=== PATIENT | female | born 1975 | race Caucasian/White ===

== ENCOUNTER 2021-11-20 12:45 | Emergency (ER) | payer BC, SELFPAY ==
--- NOTE | 2021-11-20 12:45 | RT.EKG_ITS ---
APPROVED REPORT Exam: Resting ECG Reason for Exam: CHEST PAIN Patient Location: E HR:84 bpm ECG Measurements Heart Rate 84 AXIS NH 179 P 51 QRSd 77 QRS 37 QT 341 T 32 QTc 403 Conclusion Sinus rhythm...normal P axis, V-rate 60- 99
[2021-11-20 12:49] VITALS: BP 148/104; PULSE 94; RESP 18; TEMP 36.7; O2SAT 98
--- NOTE | 2021-11-20 12:57 | ED.GENADUL_ITS ---
Discharge Plan Discharge Details Chief Complaint: Chest Pain Primary Care Provider: Abhijit Tom ED Provider: Jl Johnson Medical Decision Making Patient's EKG on presentation reveals a normal sinus rhythm normal intervals normal segments. No signs of ischemia on EKG. Patient meets negative PERC criteria for PE, score 0. No further work-up regarding PE required at this time. Patient's troponin was negative. Chest x-ray also within normal limits. Vaccination patient's symptoms at this point. ACS and pulmonary issues were ruled out. Patient will be discharged with instruction to take a baby aspirin a day and follow-up with PCP HPI General Date/Time Provider Initiated Documentation: 11/20/21 12:57 . HPI Narrative: 46-year-old lady presented to emergency room for evaluation of chest pain. States she was riding a long board yesterday afternoon the warm weather when she developed some anterior chest tightness. At times this radiates to her back. She continues to mow the lawn than 1+. She has been having persistent pain for approximately 24 hours now. Will relieving factors. No chest pain factors. Not associated with any nausea vomiting. She states she was mildly diaphoretic yesterday while mowing the lawn but it was hot. Previous to yesterday's chest pain presentation she states she felt nauseous for 3 days. No vomiting. No shortness of breath, no cough. No palpitations. No swelling of lower extremities. General Stated Complaint: Chest Pain ERICKA: 3 Review of Systems Narrative: Constitutional negative for fever chills. Positive for malaise fatigue HEENT negative Cardiovascular see HPI no palpitation Respiratory no cough no short of breath GI no abdominal pain no nausea no vomiting negative MSK negative Skin negative Neuro no headache no paresthesias no focal weakness Psych positive anxiety Endo no weight gain no weight loss Pathological not on any blood thinners. PFSH Social History Smoking/Tobacco Use Status: Never Smoking risk assessment performed?: Yes Alcohol Intake: current Alcohol Intake frequency: a few times a month Alcohol type: wine Drug use: Never Substance use type: does not use Do you feel safe at home: Yes Do you feel safe in your relationship?: Yes Exam Narrative Exam Narrative: Awake alert oriented x3 calm no acute distress cooperative pleasant, obese PERRLA EOMI MMM anicteric Supple neck Chest is clear to auscultation bilaterally. No crepitus. Regular rhythm and rate no murmurs Abdomen soft nondistended no tenderness Skin no rashes good color good cap refill Neuro grossly intact strength 5/5 bilaterally Extremity no pedal edema Psych good mood and affect Course Vital Signs Vital signs: Vital Signs Temperature 36.7 C 11/20/21 12:49 Pulse 94 H 11/20/21 12:49 Respiratory Rate 18 11/20/21 12:49 Blood Pressure 148/104 H 11/20/21 12:49 Pulse Oximetry 98 11/20/21 12:49 Temperature 36.7 C 11/20/21 12:49 Temperature Source Tympanic 11/20/21 12:49 Pulse 94 H 11/20/21 12:49 Respiratory Rate 18 11/20/21 12:49 Respiratory Effort 11/20/21 12:52 Blood Pressure 148/104 H 11/20/21 12:49 Blood Pressure Position Supine 11/20/21 12:49 Pulse Oximetry 98 11/20/21 12:49 Oxygen Delivery Method Room Air 11/20/21 12:49 Oxygen Flow Rate 0 11/20/21 12:49 Pain Level 5 11/20/21 12:49
--- NOTE | 2021-11-20 13:00 | DI.RAD_ITS ---
Exam(s) XR CHEST 2V PA LATERAL EXAM: XR CHEST 2V PA LATERAL CLINICAL HISTORY: Chest pain TECHNIQUE: 2D digital imaging was performed of the chest. Two images were obtained. PA and lateral views were obtained. COMPARISON: No exams were available for comparison FINDINGS: MEDIASTINUM: Normal. HEART: Normal. PULMONARY VASCULATURE: Normal. LUNGS: Clear. PLEURAL SPACE: No pleural effusion or pneumothorax. BONE:Within normal limits for the patient's age. OTHER FINDINGS:Normal. IMPRESSION: No acute pulmonary findings. DATA REPOSITORY: RADIATION DOSE DELIVERED:
[2021-11-20] MEDS: Aspirin 325 MG TAB PO (13:09)
[2021-11-20 13:20] LABS: Abs Immature Grans 0.03 10^3/uL (0.0-0.06); Absolute Basophil Count 0.05 10^3/uL (0.0-0.2); Absolute Eosinophil Count 0.18 10^3/uL (0.0-0.7); Absolute Lymphocyte Count 1.74 10^3/uL (1.2-3.4); Absolute Monocyte Count 0.48 10^3/uL (0.1-0.8); Absolute Neutrophil Count 4.66 10^3/uL (1.2-6.7); Basophils % 0.7; Eosinophils % 2.5; HCT 40.8 % (36.0-46.0); HGB 14.3 g/dL (11.2-15.7); Immature Grans % 0.4; Lymphocytes % 24.4; MCH 33.5 pg (27.0-33.0); MCV 96 fL (80-95); Monocytes % 6.7; Neutrophils % 65.3; RBC 4.27 10^6/uL (3.93-5.22); RDW-SD 42.2 fL; WBC 7.14 10^3/uL (4.4-10.8)
[2021-11-20 13:36] LABS: ALT 51 U/L (14-59); AST 37 U/L (15-37); Albumin 3.6 g/dL (3.4-5.0); Alkaline Phosphatase 113 U/L (46-116); Anion Gap 6.6 mmol/L (3-11); BUN 7 mg/dL (7-18); Bilirubin, Total 0.4 mg/dL (0.2-1.0); CO2 28.4 mmol/L (21.0-32.0); CREATININE 0.8 mg/dL (0.55-1.02); Calcium 8.9 mg/dL (8.5-10.1); Chloride 103 mmol/L (98-107); Glucose 137 mg/dL (74-106); Sodium 138 mmol/L (136-145); Total Protein 7.4 g/dL (6.4-8.2); Troponin I < 50 ng/L (<or=60)
--- OUTSIDE RECORDS SUMMARY | 2021-11-20 14:13 | XMS_ITS | CCD ---
:1975 Author Care Team Providers Name Role Phone SLIM CALVO Attending Physician Unavailable SLIM CALVO Rounding (Secondary) Physician Unavailab le Vital Signs Unknown or Not Available. Allergies Allergy Code Allergy Type Reaction Status MORPHINE 7052 Drug allergy muscle tightness Active Procedures Unknown or Not Available. History of Immunizations Unknown or Not Available. Problems Unknown or Not Available. Results Unknown or Not Available. Active Medications Medication Code Dose Units Frequency Route Modification Start Date/Time Citalopram 391581 40 MILLIGRAMS DAILY ORAL 01/01/2019 Hydrobromide 19:49 40MG Oral Tablet Prescription Detail TAKE 40 MILLIGRAMS ORAL AURY Y Glimepiride 1MG Oral Tablet [id number] 1 MILLIGRAMS DAILY ORAL 01/01/2019 19:49 Prescription Detail TAKE 1 MILLIGRAMS ORAL DAILY KlonoPIN 0.5MG 312006 0.5 MILLIGRAMS NEEDED THREE ORAL 01/01/2019 19:49 Oral Tablet TIMES A DAY Prescription Detail TAKE 0.5 MILLIGRAMS ORAL NEEDED THREE TIMES A DAY LORazepam 0.5MG [id number] 0.5 MILLIGRAMS NEEDED, ORAL 19:49 Oral Tablet EVERY 12 HOURS Prescription Detail TAKE 0.5 MILLIGRAMS ORAL NEEDED, EVERY 12 HOURS MIRENA IUD 0 1 NEEDED INTRAUTERINE 2018 19:49 Prescription Detail 1 INTRAUTERINE NEEDED Naproxen 500MG Oral [id number] 500 MILLIGRAMS TWICE A DAY ORAL 01/01/2019 19:49 Tablet Prescription Detail TAKE 500 MILLIGRAMS ORAL TWI CE A DAY ONDANSETRON HCI 4MG 0 4 MILLIGRAMS NEEDED, EVERY ORAL 01/01/2019 19:49 ORAL TABLET 12 HOURS Prescription Detail TAKE 4 MILLIGRAMS ORAL NE EDED, EVERY 12 HOURS Propranolol HCl 40MG Oral [id number] 40 MILLIGRAMS DAILY ORAL 01/01/2019 19:49 Tablet Prescription Detail TAKE 40 MILLIGRAMS ORAL AURY Y Medications Administered During Visit Unknown or Not Available. Encounters Encounter Diagnosis Diagnosis Code Start Date Injury of right shoulder [id number] 08/04/2021 Social History Smoking Status Code Start Date End Date Never smoker [id number] Patient Decision Aids Unknown or Not Available. Discharge Instructions You were admitted to [facility] on 08/04/2021 13:50 with a principal diagnosis of Injury of right shoulder You were discharged from [facility] on 08/04/2021 00:00 Should you have any questions prior to d ischarge, please contact a member of your healthcare team. If you have left the spital and have any questions, please contact your primary care physician. Chief Complaint and Reason For Visit Unknown or Not Available. Function Status Unknown or Not Available. Plan of Care Unknown or Not Available. Referral/Transition of Care Unknown or Not Available.
--- OUTSIDE RECORDS SUMMARY | 2021-11-20 14:13 | XMS_ITS | CCD ---
:1975 Author Care Team Providers Name Role Phone DELFINA GUAJARDO Attending Physician Unavailable DELFINA GUAJARDO Rounding (Secondary) Physician Unavaila ble Vital Signs Unknown or Not Available. Allergies Allergy Code Allergy Type Reaction Status MORPHINE 7052 Drug allergy muscle tightness Active Procedures Unknown or Not Available. History of Immunizations Unknown or Not Available. Problems Unknown or Not Available. Results Unknown or Not Available. Active Medications Medication Code Dose Units Frequency Route Modification Start Date/Time Citalopram [id number] 40 MILLIGRAMS DAILY ORAL 01/01/2019 Hydrobromide 19:49 40MG Oral Tablet Prescription Detail TAKE 40 MILLIGRAMS ORAL AURY Y Glimepiride 1MG Oral Tablet 117997 1 MILLIGRAMS DAILY ORAL 01/01/2019 19:49 Prescription Detail TAKE 1 MILLIGRAMS ORAL DAILY KlonoPIN 0.5MG 122521 0.5 MILLIGRAMS NEEDED THREE ORAL 01/01/2019 19:49 Oral Tablet TIMES A DAY Prescription Detail TAKE 0.5 MILLIGRAMS ORAL NEEDED THREE TIMES A DAY LORazepam 0.5MG 860729 0.5 MILLIGRAMS NEEDED, ORAL 19:49 Oral Tablet EVERY 12 HOURS Prescription Detail TAKE 0.5 MILLIGRAMS ORAL NEEDED, EVERY 12 HOURS MIRENA IUD 0 1 NEEDED INTRAUTERINE 2018 19:49 Prescription Detail 1 INTRAUTERINE NEEDED Naproxen 500MG Oral [id number] 500 MILLIGRAMS TWICE A DAY ORAL 01/01/2019 19:49 Tablet Prescription Detail TAKE 500 MILLIGRAMS ORAL TWI CE A DAY ONDANSETRON HCI 4MG 0 4 MILLIGRAMS NEEDED, EVERY ORAL 01/01/2019 19:49 ORAL TABLET 12 HOURS Prescription Detail TAKE 4 MILLIGRAMS ORAL NE EDED, EVERY 12 HOURS Propranolol HCl 40MG Oral [id number] 40 MILLIGRAMS DAILY ORAL 01/01/2019 19:49 Tablet Prescription Detail TAKE 40 MILLIGRAMS ORAL AURY Y Medications Administered During Visit Unknown or Not Available. Encounters Encounter Diagnosis Diagnosis Code Start Date Other specified disorders of tendon, right shoulder [id number] 09/18/2021 Social History Smoking Status Code Start Date End Date Never smoker [id number] Patient Decision Aids Unknown or Not Available. Discharge Instructions You were admitted to [facility] on 09/18/2021 08:02 with a principal diagnosis of Other specified disorders of tendon, right shoulder You were discharged from [facility] on 09/18/2021 00:00 Should you have any questions prior [...]
--- OUTSIDE RECORDS SUMMARY | 2021-11-20 14:13 | XMS_ITS | CCD ---
[...] Units Frequency Route Modification Start Date/Time Citalopram [id number] 40 MILLIGRAMS DAILY ORAL 01/01/2019 Hydrobromide 19:49 40MG Oral Tablet Prescription Detail TAKE 40 MILLIGRAMS ORAL AURY Y Glimepiride 1MG Oral Tablet [id number] 1 MILLIGRAMS DAILY ORAL 01/01/2019 19:49 Prescription Detail TAKE 1 MILLIGRAMS ORAL DAILY KlonoPIN 0.5MG 596875 0.5 MILLIGRAMS NEEDED THREE ORAL 01/01/2019 19:49 Oral Tablet TIMES A DAY Prescription Detail TAKE 0.5 MILLIGRAMS ORAL NEEDED THREE TIMES A DAY LORazepam 0.5MG 151018 0.5 MILLIGRAMS NEEDED, ORAL 19:49 Oral Tablet EVERY 12 HOURS Prescription Detail TAKE 0.5 MILLIGRAMS ORAL NEEDED, EVERY 12 HOURS MIRENA IUD 0 1 NEEDED INTRAUTERINE 2018 19:49 Prescription Detail 1 INTRAUTERINE NEEDED Naproxen 500MG Oral [id number] 500 MILLIGRAMS TWICE A DAY ORAL 01/01/2019 19:49 Tablet Prescription Detail TAKE 500 MILLIGRAMS ORAL TWI CE A DAY ONDANSETRON HCI 4MG 0 4 MILLIGRAMS NEEDED, EVERY ORAL 01/01/2019 19:49 ORAL TABLET 12 HOURS Prescription Detail TAKE 4 MILLIGRAMS ORAL NE EDED, EVERY 12 HOURS Propranolol HCl 40MG Oral [id number] 40 MILLIGRAMS DAILY ORAL 01/01/2019 19:49 Tablet Prescription Detail TAKE 40 MILLIGRAMS ORAL AURY Y Medications Administered During Visit Unknown or Not Available. Encounters Unknown or Not Available. Social History Smoking Status Code Start Date End Date Never smoker [id number] Patient Decision Aids Unknown or Not Available. Discharge Instructions You were admitted to [facility] on 10/16/2021 08:56 You were discharged from [facility] on 10/16/2021 00:00 Should you have any questions prior [...]
--- OUTSIDE RECORDS SUMMARY | 2021-11-20 14:14 | XMS_ITS ---
:1975 Author Care Team Providers Name Role Phone KAIA MCNULTY NP Primary Care Provider [phone] [facility] Staff Mechanical Engineer [phone] Allergies Code Code System Name Reaction Severity Status Onset 7052 RxNorm Morphine Myalgias (Muscle Pain) ? Active ? Notes: 07/31/21 verbal review Medications Name Status Start Date Stop Date ? ? acetaminophen 300 mg-codeine 30 mg tablet Completed 201307/11/2013 1-2 Tablet: every six hours as needed for pain Advair Diskus 250 mcg-50 mcg/dose powder for inhalation Active ? Not available Inhale 1 puff twice a day by inhalation route. Afluria Quad 3234-2874 60 mcg (15 mcg x 4)/0.5 Completed ? 05/01/2018 mL IM suspension albuterol sulfate HFA 90 mcg/actuation aerosol inhaler Active ? Not available Inhale 2 puffs every 4 hours by inhalation route. amoxicillin 500 mg capsule Completed ? 02/27 aspirin 81 mg chewable tablet Completed ? Chew 1 tablet every day by oral route. atorvastatin 20 mg tablet Completed ? 2018 BD Ultra-Fine Short Pen Needle 31 gauge x 5/16 Active ? Not available Bentyl 20 mg tablet Completed 12/13/2012 07/19/2014 1 Tablet: four times daily benzonatate 100 mg capsule Completed 06/01/201606/04 1 (one) Capsule: three times daily as needed bisacodyl 5 mg tablet Completed ? 05/10/2018 Take 1 tablet every day by oral route. ciprofloxacin 500 mg tablet Active ? Not available citalopram 40 mg tablet Active ? Not avai lable Claritin Liqui-Gel 10 mg capsule Completed 01/13/2009 09/16/2011 1 (one) Capsule: as needed clindamycin 1 % topical gel Completed 07/14/201507/22 1 (one) Gel: abid clonazepam 0.5 mg tablet Active ? Not luan ilable TAKE ONE TABLET BY MOUTH EVERY MORNING & TAKE TWO TABLETS BY MOUTH EVERY EVENING codeine 10 mg-guaifenesin 100 mg/5 mL oral liquid Completed 07/23/2016 09/28/2016 5-10 Milliliter: qpm Contour Test Strips Active ? Not availabl e Test 3 times daily cyclobenzaprine 10 mg tablet Active ? Not available Take 1 tablet 3 times a day by oral route as needed. Fluzone Quad 2750-2050 (PF) 60 mcg (15 mcg x Completed ? 06/04/2019 4)/0.5 mL IM syringe gabapentin 100 mg capsule Completed ? 2021 one capsule 3 times a day glimepiride 1 mg tablet Completed ? 02/28/20 18 glimepiride 2 mg tablet Completed ? 11/22/19 18 glimepiride 4 mg tablet Completed ? 12/28/19 18 1 daily Humalog KwikPen (U-100) Insulin 100 unit/mL subcutaneous Active ? Not available inject units subcutaneously based on sl iding scale. Eat 15 minutes within giving a dose of insulin 150 or less - no -772 - 2 units 201-250 - 4 units 251-300 - 8 units 300 or more - call physician hydrocodone 5 mg-acetaminophen 325 mg tablet Completed 02/01/2011 1 Tablet: every 4-6 hours hydrocortisone 2.5 % topical cream Completed 05/22/2012 06/01/2016 1 Cream: tid - three times a day hydromorphone 2 mg tablet Completed ? 2017 hydroxyzine HCl 50 mg tablet Active ? Not available Take 1 tablet every day by oral route at bedtime. ibuprofen 600 mg tablet Completed 03/03/2011 03/03/20 11 1 (one) Tablet: three times daily Imitrex 100 mg tablet Completed 07/19/2014 01/20/2016 2 (two) Tablet: one time at onset of headache as needed cephalexin 500 mg capsule Active ? Not av ailable Lamisil 250 mg tablet Completed 02/01/2011 09/16/2011 1 Tablet: daily lamotrigine 100 mg tablet Completed ? 2019 lamotrigine 150 mg tablet Active ? Not av ailable Take 1 tablet every day by oral route. lamotrigine 200 mg tablet Completed ? 2019 lamotrigine 25 mg tablet Completed ? 018 lamotrigine ER 100 mg tablet,extended release 24 hr Completed 05/20/2017 05/20/2017 1 (one) Tablet: once daily Lantus Solostar U-100 Insulin 100 unit/mL (3 mL) subcutaneous pe n Active ? Not available USE 15 UNITS EVERY MORNING lorazepam 0.5 mg tablet Active ? Not avai lable lorazepam 1 mg tablet Active ? Not availa ble meclizine 25 mg tablet Completed 08/06/2015 6 1 (one) Tablet Tablet: tid - three times a day as needed meloxicam 15 mg tablet Completed ? 1 Take 1 tablet every day by oral route. Metamucil (with sugar) 3.4 gram/12 gram oral powder Completed 12/13/2012 06/01/2016 1 Powder: two times daily metformin ER 500 mg tablet,extended release 24 hr Completed 05/14/2015 01/20/2016 1 (one) Tablet ER 24HR Tablet ER 24HR: ud metronidazole 500 mg tablet Completed ? 08/18 Mirena 20 mcg/24 hours (7 yrs) 52 mg intrauterine device Active ? Not available Take 1 device by intrauterine route. naproxen 500 mg tablet Completed ? 2 Take 1 tablet twice a day by oral route as needed. naproxen 500 mg tablet,delayed release Completed ? 12/27/2017 Narcan 4 mg/actuation nasal spray Active ? Not available Take 1 spray as needed by nasal route. Nasonex 50 mcg/actuation [place] Completed 11/09/2004 0 06/29/2005 2 (two) [place](s): QD Novofine 32 32 gauge x 1/4 needle Active ? Not available nystatin 100,000 unit/mL oral suspension Completed 010 01/19/2010 1 (one) teaspoon(s): qid - four times a day omeprazole 20 mg capsule,delayed release Active ? Not available [address]: daily ondansetron 4 mg disintegrating tablet Active ? Not available Take 1 tablet(s) every 8 hours by oral route as needed. ondansetron HCl 4 mg tablet Completed ? 12/18 ondansetron HCl 8 mg tablet Completed 12/13/201201/2013 1 Tablet: oral twice per day OneTouch Ultra Blue Test Strip Active ? N ot available pantoprazole 40 mg tablet,delayed release Active ? Not available Take 1 tablet every day by oral route as needed. penicillin V potassium 500 mg tablet Completed ? 10/03/2020 Take 1 tablet twice a day by oral route for 10 days. Percocet 10 mg-325 mg tablet Completed 08/09/201309/2013 1 (one) Tablet: by mouth every 4-6 hours as needed for pain phenazopyridine 200 mg tablet Completed ? Phenergan 25 mg/mL injection solution Completed 10/02/2012 10/02/2012 1 Solution: oral every 6 hours as needed polyethylene glycol 3350 17 gram/dose oral powder Completed ? 02/27/2018 Take 1 g twice a day by oral route. prazosin 1 mg capsule Active ? Not availa ble take 1 capsule in the morning and 2 capsules in the evening prednisone 10 mg tablet Completed 01/19/2010 01/20/20 10 4 Tablet: daily propranolol 20 mg tablet Active ? Not luan ilable Take 1 tablet every day by oral route. quetiapine 200 mg tablet Completed ? 019 Take 1 tablet every day by oral route as needed. Senna with Docusate Sodium 8.6 mg-50 mg tablet Completed ? 02/27/2018 Take 2 tablets twice a day by oral route. sulfamethoxazole 800 mg-trimethoprim 160 mg Completed ? 12/11/2018 tablet tamsulosin 0.4 mg capsule Completed ? 2021 Take 1 capsule every day by oral route for 14 days. Topamax 25 mg tablet Completed 10/02/2012 10/02/2012 1 Tablet: See comments tramadol 50 mg tablet Active ? Not availa ble 1-2 tabs every 6 hours as needed triamcinolone acetonide 0.1 % topical cream Completed 07/200909/16/2011 1 (one) Cream: Twice daily Trulicity 0.75 mg/0.5 mL subcutaneous pen Completed ? 08/24/2019 injector Valtrex 1 gram tablet Completed 08/20/2010 08/30/2010 1 Tablet: tid - three times a day venlafaxine ER 150 mg capsule,extended release 24 hr Active ? Not available take 1 capsule once daily venlafaxine ER 75 mg capsule,extended release Completed ? 11/21/2017 24 hr venlafaxine ER 75 mg tablet,extended release 24 hr Completed ? 12/19/2017 1 capsule once daily Victoza 2-Aleks 0.6 mg/0.1 mL (18 mg/3 mL) Active ? Not available subcutaneous pen injector Xopenex HFA 45 mcg/actuation aerosol inhaler Completed 11/11/2010 2 (two) Aerosol: Every 6 hours as needed azithromycin 250 mg tablet Active ? Not a vailable Zoloft 25 mg tablet Completed 03/10/2007 03/10/2007 1 (one) Tablet: Daily Zoloft 50 mg tablet Completed 01/13/2009 01/13/2009 1 (one and a half) Tablet: daily Notes: 07/31/21 verbal review Problems Name Status Onset Date Source ? Solitary Nodule of Lung Active 10/02/2018 ? Thyroid Nodule Active 04/30/2020 ? Hypertensive Disorder Active 10/30/2021 ? Type 2 Diabetes Mellitus without Complication Active ? ? Hyperlipidemia Active ? ? Severe Obesity Active ? ? Claustrophobia Unknown ? History Depressive Disorder Active ? ? Migraine with Aura Active ? ? Pharyngitis Unknown ? History Disorder of Upper Respiratory System Unknown ? History Gastroesophageal Reflux Disease Active ? ? Irritable Bowel Syndrome Active ? ? Acute Cholecystitis Unknown ? History Chronic Cholecystitis Unknown ? History Acute Pancreatitis Unknown ? History Blood in Urine Unknown ? History Irregular Periods Unknown ? History Dizziness and Giddiness Unknown ? History Cough Unknown ? History Dysuria Unknown ? History Epigastric Pain Unknown ? History Insertion of Intrauterine Contraceptive Device Active ? ? Intrauterine Device Check Active ? ? Venereal Disease Screening Unknown ? Histo ry Finding of Menstrual Bleeding Unknown ? Hi story SNOMED CT Concept Unknown ? History Pain in Right Knee Active ? ? Procedure by Method Unknown ? History Finding of Esophagus Unknown ? History Procedures Date Name Performed by ? 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 Caesarean Section Information not avai lable Notes: with bilateral partial salpinge ctomy ? Hip Surgery Information not avai lable Notes: left hip labrum 12/27/2017 Electrocardiogram [facility] [address] [place] [address] (Work Place) 08/24/2018 CT, Chest, W/o Contrast [facility] (Internal) [address] [place] [address] (Work Place) 06/19/2019 MAMMO, Screening, Tomosynthesis, [facility] (Internal) Bilateral [address] [place] [address] (Work Place) 06/27/2019 XR, Clavicle [facility] (Internal) [address] [place] [address] (Work Place) 10/01/2019 US, Head + Neck, Soft Tissue [facility] Radiology (Internal) [address] [place] [address] (Work Place) 04/11/2020 US, Head + Neck, Soft Tissue [facility]iology (Internal) [address] [place] [address] (Work Place) 10/03/2020 MAMMO, Screening, Tomosynthesis, [facility] (Internal) Bilateral [address] [place] [address] (Work Place) 07/31/2021 MRI, Shoulder, W/o Contrast [facility] Radiology (Internal) [address] [place] [address] (Work Place) 10/13/2021 MAMMO, Screening, Tomosynthesis, [facility] (Internal) Bilateral [address] [place] [address] (Work Place) 10/27/2021 MAMMO, Screening, Tomosynthesis, [facility] (Internal) Bilateral [address] [place] [address] (Work Place) Results Lab Results Date Name Specimen Result Interpretation Description Value Range Status Address ? 07/31/2021 HbA1C BLD High Ha1C 7.1 % 4.0-6.0 % Final [facility] th (Hemoglobin Count ry a1C), Blood Hospi [facility] Lab (Internal) : [address] 07/31/2021 Lipid Panel, S High Chol 230 0-200 Final [facility] Serum mg/dL mg/dL [facility] ([facility] : [address] ? ? S High Trig 253 0-150 Final [facility] mg/dL mg/dL [facility] (Internal) : [address] t ? ? S Low Hdl 39 40-60 Final [facility] mg/dL mg/dL [facility] (Internal) : [address] ? ? S High Ldl 140 0-130 Final [facility] mg/dL mg/dL [facility] (Internal) : [address] 07/31/2021 BMP, Serum or S High g/r 125 74-106 Final [facility] Plasma mg/dL mg/dL [facility] (Internal) : [address] ? ? S ? Bun 7 mg/dL 7-18 Final [facility] mg/dL [facility] (Internal) : [address] t ? ? S ? Crea 0.7 0.6-1.0 Final [facility] mg/dL mg/dL [facility] (Internal) : [address] ? ? S ? Ca 9.0 8.5-10.1 Final [facility] mg/dL mg/dL [facility] (Internal) : [address] ? ? S Low Na 135 136-145 Final [facility] mmol/L mmol/L [facility] (Internal) : [address] t ? ? S ? K 4.2 3.5-5.1 Final [facility] mmol/L mmol/L [facility] (Internal) : [address] ? ? S ? Cl 100 98-107 Final [facility] mmol/l mmol/l [facility] (Internal) : [address] ? ? S ? Tco2 29.3 21.0-32.0 Final [facility] mmol/L mmol/L [facility] (Internal) : [address] 07/31/2021 Microalbumin, UR ? Malb <5 mg/L 5-20 mg/L Fi nal [facility] Urine [facility] (Internal) : [address] ? ? UR ? U-crea, 57 30-125 Final [facility] Spot mg/dL mg/dL [facility] (Internal) : [address] ? ? UR ? Microal 6.8 0.0-30.0 Final [facility] b/crea ug/mg ug/mg [facility] (Internal) : [address] 06/24/2021 CBC W/ Auto Diff BLD ? Wbc 6.9 5.0-10.0 F inal [place] 10*3/uL 10*3/uL [facility] (Internal) : [address] ? ? BLD ? Rbc 4.48 4.10-5.30 Final [facility] 10*6/uL 10*6/uL [facility] (Internal) : [address] ? ? BLD ? Hgb 14.7 12.0-16.0 Final [facility] g/dL g/dL [facility] (Internal) : [address] ? ? BLD ? Hct 41.7 % 37.0-47.0 Final [facility] (Internal) : [address] ? ? BLD ? Mcv 93.1 fL 80.0-96.0 Final [facility] (Internal) : [address] ? ? BLD High Mch 32.8 pg 26.0-32.0 Final [facility] pg [facility] (Internal) : [address] ? ? BLD High Mchc 35.3 31.0-35.0 Final [facility] g/dL g/dL [facility] (Internal) : [address] ? ? BLD ? Rdw 11.9 % 11.5-14.5 Final [facility] (Internal) : [address] ? ? BLD ? Plt 220 130-450 Final [place] 10*3/uL 10*3/uL [facility] (Internal) : [address] ? ? BLD ? Anc 3.98 ? Final [place] 10*3/uL [facility] (Internal) : [address] ? ? BLD ? Nlr 1.94 0.00-3.20 Final [facility] (Internal) : [address] ? ? BLD ? Neutro 57.6 % 40.0-75.0 Final [facility] (Internal) : [address] ? ? BLD ? Lymph 29.7 % 20.0-50.0 Final [facility] (Internal) : [address] ? ? BLD ? [place] 9.0 % 2.0-10.0 Final [facility] (Internal) : [address] ? ? BLD ? Eos 2.5 % 1.0-6.0 % Final [facility] (Internal) : [address] ? ? BLD ? Baso 0.9 % 0.0-1.0 % Final [facility] (Internal) : [address] ? ? BLD ? Ig 0.3 % 0.0-0.9 % Final [facility] (Internal) : [address] t 06/24/2021 CMP, Serum or S High g/r 163 74-106 Final [facility] Plasma mg/dL mg/dL [facility] (Internal) : [address] ? ? S ? Bun 14 7-18 Final [facility] mg/dL mg/dL [facility] (Internal) : [address] ? ? S ? Crea 0.9 0.6-1.0 Final [facility] mg/dL mg/dL [facility] (Internal) : [address] ? ? S ? Ca 10.1 8.5-10.1 Final [place] mg/dL mg/dL [facility] (Internal) : [address] ? ? S ? Na 138 136-145 Final [place] mmol/L mmol/L [facility] (Internal) : [address] ? ? S ? K 4.0 3.5-5.1 Final [facility] mmol/L mmol/L [facility] ([facility] : [address] ? ? S ? Cl 100 98-107 Final [facility] mmol/l mmol/l [facility] (Internal) : [address] ? ? S ? Tco2 29.1 21.0-32.0 Final [facility] mmol/L mmol/L [facility] (Internal) : [address] ? ? S ? Tp 7.3 6.4-8.2 Final [facility] g/dL g/dL [facility] (Internal) : [address] ? ? S ? Alb 3.8 3.4-5.0 Final [place] g/dL g/dL [facility] (Internal) : [address] ? ? S ? Tbil 0.40 0.20-1.00 Final [facility] mg/dL mg/dL [facility] (Internal) : [address] ? ? S ? Alp 118 U/L 50-136 Final [place] U/L [facility] (Internal) : [address] ? ? S ? Alt 34 U/L 14-59 U/L Final [facility] (Sgpt) [facility] (Internal) : [address] ? ? S ? Ast 18 U/L 15-37 U/L Final [facility] (Sgot) [facility] (Internal) : [address] 06/24/2021 BNP (B-type S ? Nt-bnp 10 0-125 Final [facility] Natriuretic pg/mL pg/mL Count ry Peptide), Hospita l Lab Prohormone (Inter nal): N-terminal, [address], [place] Immunoassay, Blood 06/24/2021 Lipase, Serum or S ? Lip 74 U/L 73-393 Fin al [facility] Plasma U/L [facility] (Internal) : [address] 06/24/2021 Troponin I, S ? Trop 16.45 0.00-60.4 Final [facility] Serum or Plasma pg/mL 0 pg/mL [facility] (Internal) : [address] 06/24/2021 EKG Done by ED ? No ? ? ? North observat [facility] recorded (Interna l): . [address] 06/01/2021 Drug Screen, UR ? Thc negativ neg (50 Final [facility] Urine e NG/mL NG/mL) [facility] NG/mL Hospital L ab (Internal) : [address] ? ? UR ? Pcp negativ neg (25 Final [facility] e NG/mL) [facility] : [address] ? ? UR ? Peyton negativ neg (150 Final [facility] e NG/mL) [facility] ([facility] : [address] ? ? UR ? Met negativ neg (500 Final [facility] e NG/mL) [facility] (Internal[facility] : [address] ? ? UR ? Opi negativ neg (100 Final [facility] e NG/mL) [facility] ([facility] : [address] ? ? UR ? Amp negativ neg (500 Final [facility] e NG/mL) [facility] (Internal) : [address] ? ? UR ABNORMAL Bzo positiv neg (150 Final [facility] e NG/mL) [facility] ([facility] : [address] ? ? UR ? Tca negativ neg (300 Final [facility] e NG/mL) [facility] ([facility] : [address] ? ? UR ? Mtd negativ neg (200 Final [place] e NG/mL) [facility] (Internal) : [address] ? ? UR ? Bar negativ neg (200 Final [facility] e NG/mL) [facility] ([facility] : [address] ? ? UR ? Oxy negativ neg (100 Final [place] e NG/mL) [facility] ([facility] : [address] ? ? UR ? Ppx negativ neg (300 Final [facility] e NG/mL) [facility] (Internal[facility] : [address] ? ? UR ? Bup negativ neg (10 Final [place] e NG/mL) [facility] (Internal) : [address], [place] 06/01/2021 Benzodiazepines, UR ? Alprazo negativ cutoff: Final North Quantitative garcia by e NG/mL 10 NG/mL C ountry Confirmation, lc-MS/MS H ospital Lab Urine (Internal) : [address] ? ? UR ? Alpha-h negativ cutoff: Final [facility] ydroxyal e NG/mL 10 NG/mL Count ry prazolam Hospital Lab by (Internal) : lc-MS/MS [address] ? ? UR ? Chlordi negativ cutoff: Final [facility] azepoxid e NG/mL 10 NG/mL Count ry e by Hospital L ab lc-MS/MS (Interna l): [address] ? ? UR ? Clonaze negativ cutoff: Final North bala by e NG/mL 10 NG/mL [facility] lc-MS/MS Hospital Lab (Internal) : [address] ? ? UR ? 7-Amino 42 cutoff: Final North clonazep NG/mL 10 NG/mL Countr y am by Hospital L ab lc-MS/MS (Interna l): [address] ? ? UR ? Diazepa negativ cutoff: Final North m by e NG/mL 10 NG/mL [facility] lc-MS/MS Hospital Lab (Internal) : [address] ? ? UR ? Nordiaz negativ cutoff: Final North epam by e NG/mL 10 NG/mL Countr y lc-MS/MS Hospital Lab (Internal) : [address] ? ? UR ? Midazol negativ cutoff: Final North am by e NG/mL 10 NG/mL [facility] lc-MS/MS Hospital Lab (Internal) : [address] ? ? UR ? Alpha-h negativ cutoff: Final North ydroxy e NG/mL 10 NG/mL [facility] Midaz[facility] Lab m by (Internal) : lc-MS/MS [address] t ? ? UR ? Oxazepa negativ cutoff: Final North m by e NG/mL 10 NG/mL [facility] lc-MS/MS Hospital Lab (Internal) : [address], [place] ? ? UR ? Temazep negativ cutoff: Final North am by e NG/mL 10 NG/mL [facility] lc-MS/MS Hospital Lab (Internal) : [address] ? ? UR ? Clobaza negativ cutoff: Final North m by e NG/mL 10 NG/mL [facility] lc-MS/MS Hospital Lab (Internal) : [address] ? ? UR ? N-desme negativ cutoff: Final North thylclob e NG/mL 10 NG/mL Count ry daniel by Hospital Lab lc-MS/MS (Interna l): [address] ? ? UR ? Flunitr negativ cutoff: Final North azepam e NG/mL 10 NG/mL [facility] by Hospital L ab lc-MS/MS (Interna l): [address] ? ? UR ? 7-Amino negativ cutoff: Final North flunitra e NG/mL 10 NG/mL Count ry zepam by Hospital Lab lc-MS/MS (Interna l): [address] ? ? UR ? Fluraze negativ cutoff: Final North bala by e NG/mL 10 NG/mL [facility] lc-MS/MS Hospital Lab (Internal) : [address] ? ? UR ? 2-Cranston negativ cutoff: Final North xy Ethyl e NG/mL 10 NG/mL Count ry Flurazep Hospital Lab am by (Internal) : lc-MS/MS [address], [address] ? ? UR ? Lorazep 276 cutoff: Final North am by NG/mL 10 NG/mL [facility] lc-MS/MS Hospital Lab (Internal) : [address] ? ? UR ? Prazepa negativ cutoff: Final North m by e NG/mL 10 NG/mL [facility] lc-MS/MS Hospital Lab (Internal) : [address] ? ? UR ? Triazol negativ cutoff: Final North am by e NG/mL 10 NG/mL [facility] lc-MS/MS Hospital Lab (Internal) : [address] ? ? UR ? Alpha-h negativ cutoff: Final [facility] ydroxy e NG/mL 10 NG/mL [facility] Tri[facility] Lab m by (Internal) : lc-MS/MS [address] ? ? UR ? Zolpide negativ cutoff: Final North m by e NG/mL 10 NG/mL [facility] lc-MS/MS Hospital Lab (Internal) : [address] ? ? UR ? Zolpide negativ cutoff: Final North m e NG/mL 10 NG/mL [facility] Phenyl-4 Hospital Lab -Carboxy (Interna l): lic Acid [address] lc-MS/MS ? ? UR ? Benzodi positiv ? Final North azepines e. [facility] Interpre Hospital Lab tation (Internal) : [address] 03/26/2021 H Pylori Ag, STL ? H. negativ negative Nydia l [facility] Stool Pylori e [facility] L ab Antigen (Internal ): [address] 03/03/2021 Urinalysis, UR ? UA-colo yellow pale Final [facility] Dipstick, Reflex r yellow [facility] Hospital L ab (Internal) : [address] ? ? UR ? UA-appe clear clear Final [facility] L ab (Internal) : [address] ? ? UR ? UA-gluc negativ negative Final [facility] e [facility] (Internal) : [address] ? ? UR ? UA-bili negativ negative Final [place] e [facility] (Internal) : [address] ? ? UR ? UA-keto negativ negative Final [place] ne e [facility] (Internal) : [address] ? ? UR ? UA-spec >1.030 1.003-1.0 Final [facility] Grav 35 [facility] L [facility] (Internal) : [address] ? ? UR ? UA-bloo negativ negative Final [place] d e [facility] (Internal) : [address] ? ? UR ? UA-pH 5.5 4.6-8.0 Final [facility] [pH] [pH] [facility] (Internal) : [address] ? ? UR ? UA-prot negativ negative Final North e [facility] (Internal) : [address] ? ? UR ? UA-urob normal normal Final [facility] ab (Internal) : [address] ? ? UR ? UA-nitr negativ negative Final [place] ite [facility] ab (Internal) : [address] ? ? UR ? UA-leuk negativ negative Final [facility] (Internal) : [address] 10/03/2020 HbA1C BLD High Ha1C 6.2 % 4.0-6.0 % Final [facility] (Hemoglobin Count ry a1C), Blood Hospi [facility]bi Lab (Internal) : [address] 09/15/2020 SARS CoV 2 RNA SWAB ? Covid-1 negativ negative Final [facility] (COVID-19), , 9 RT-PCR [facility] party host/hostess-PCR, [facility] Lab Respiratory Result (Inte rnal): Specimen [address] ? ? SWAB ? Perform kadeem ? Final [facility] [address] [facility] lab (Internal) : [address] 07/14/2020 SARS CoV 2 RNA SWAB ? Covid-1 negativ negative Final [place] (COVID-19), , 9 [facility] party host/hostess-PCR, Result Hospital Lab Respiratory (Inte rnal): Specimen [address] ? ? SWAB ? Perform gilson cdc ? Final [facility] (Internal) : [address] 05/30/2020 SARS CoV 2 RNA ? No ? ? ? Cirilo (COVID-19), , [facility] party host/hostess-PCR, ion Emergenc y Respiratory recorded Dep t: 528 Specimen . [place] [facility] e 04/11/2020 CBC W/ Auto Diff BLD ? Wbc 7.1 5.0-10.0 F inal [place] 10*3/uL 10*3/uL [facility] (Internal) : [address] ? ? BLD ? Rbc 4.10 4.10-5.30 Final [place] 10*6/uL 10*6/uL [facility] (Internal) : [address] ? ? BLD ? Hgb 13.7 12.0-16.0 Final [place] g/dL g/dL [facility] (Internal) : [address] ? ? BLD ? Hct 39.6 % 37.0-47.0 Final [facility] (Internal) : [address] ? ? BLD High Mcv 96.6 fL 80.0-96.0 Final [facility] (Internal) : [address] , [place] ? ? BLD High Mch 33.4 pg 26.0-32.0 Final [place] pg [facility] (Internal) : [address] ? ? BLD ? Mchc 34.6 31.0-35.0 Final [place] g/dL g/dL [facility] (Internal) : [address] ? ? BLD ? Rdw 11.7 % 11.5-14.5 Final [facility] (Internal) : [address] [place] ? ? BLD ? Plt 223 130-450 Final [place] 10*3/uL 10*3/uL [facility] (Internal) : [address] ? ? BLD ? Anc 4.87 ? Final [place] 10*3/uL [facility] (Internal) : [address] ? ? BLD High Nlr 3.34 0.00-3.20 Final [facility] (Internal) : [address] ? ? BLD ? Neutro 68.7 % 40.0-75.0 Final [facility] (Internal) : [address] ? ? BLD ? Lymph 20.6 % 20.0-50.0 Final [facility] (Internal) : [address] ? ? BLD ? [place] 7.2 % 2.0-10.0 Final [facility] (Internal) : [address] ? ? BLD ? Eos 2.0 % 1.0-6.0 % Final [facility] (Internal) : [address], [place] ? ? BLD High Baso 1.1 % 0.0-1.0 % Final [facility] (Internal) : [address] ? ? BLD ? Ig 0.4 % 0.0-0.9 % Final [facility] (Internal) : [address] t 04/11/2020 Amylase, Serum S ? Marilou 62 U/L 30-110 Final [facility] or Plasma U/L [facility] (Internal) : [address] t 04/11/2020 Lipase, Serum or S ? Lip 47 U/L 23-300 Fin al North Plasma U/L [facility] (Internal) : [address] t 04/11/2020 CMP, Serum or S High g/r 201 74-106 Final North Plasma mg/dL mg/dL [facility] (Internal) : [address] t ? ? S ? Bun 9 mg/dL 7-17 Final [facility] mg/dL [facility] (Internal) : [address] t ? ? S Low Crea 0.50 0.52-1.04 Final North mg/dL mg/dL [facility] (Internal) : [address] t ? ? S ? Ca 9.3 8.4-10.2 Final North mg/dL mg/dL [facility] (Internal) : [address] t ? ? S ? Na 140 137-145 Final North mmol/L mmol/L [facility] (Internal) : [address] t ? ? S ? K 4.2 3.5-5.1 Final North mmol/L mmol/L [facility] (Internal) : [address] t ? ? S ? Cl 105 98-107 Final [facility] mmol/L mmol/L [facility] (Internal) : [address] t ? ? S ? Tco2 25.0 22.0-30.0 Final [facility] mmol/L mmol/L [facility] (Internal) : [address] t ? ? S ? Tp 6.6 6.3-8.2 Final [facility] g/dL g/dL [facility] (Internal) : [address] ? ? S ? Alb 4.0 3.5-5.0 Final [place] g/dL g/dL [facility] (Internal) : [address] ? ? S ? Tbil 0.6 0.2-1.3 Final [place] mg/dL mg/dL [facility] (Internal) : [address] t ? ? S ? Alp 88 U/L 50-136 Final North U/L [facility] (Internal) : [address] ? ? S ? Alt 36 U/L 9-52 U/L Final [place] (Sgpt) [facility] (Internal) : [address] t ? ? S ? Ast 31 U/L 14-36 U/L Final [place] (Sgot) [facility] (Internal) : [address] 04/11/2020 HbA1C BLD High Ha1C 6.5 % 4.0-6.0 % Final [facility] th (Hemoglobin Count ry a1C), Blood Hospi shelbi Lab (Internal) : [address] 04/11/2020 Urinalysis, UR ? UA-colo yellow pale Final [place] Dipstick, Reflex r yellow [facility] (Internal) : [address] t ? ? UR ? UA-appe clear clear Final [facility] (Internal) : [address] t ? ? UR ? UA-spec >1.030 1.003-1.0 Final [facility] Grav 35 [facility] (Internal) : [address] t ? ? UR ? UA-pH 6.0 4.6-8.0 Final [facility] [pH] [pH] [facility] (Internal) : [address] t ? ? UR ? UA-leuk negativ negative Final [facility] Est [facility] (Internal) : [address] t ? ? UR ? UA-nitr negativ negative Final [facility] ite e [facility] (Internal) : [address] t ? ? UR ? UA-prot negativ negative Final [place] e [facility] (Internal) : [address] t ? ? UR ? UA-gluc negativ negative Final North e [facility] (Internal) : [address] t ? ? UR ? UA-keto negativ negative Final North ne e [facility] (Internal) : [address] t ? ? UR ? UA-urob normal normal Final [facility] (Internal) : [address] t ? ? UR ? UA-bili negativ negative Final North e [facility] (Internal) : [address] t ? ? UR ? UA-bloo negativ negative Final [place] d [facility] L ab (Internal) : [address] 04/02/2020 Urinalysis, ? Color Dark ? ? P _ob/Chamfering Machine Operator: 81 Dipstick, Reflex Yellow [facility] [employer] [facility] ? ? ? Glucose Normal ? ? P_ob/Chamfering Machine Operator : 81 [facility] ? ? ? Ketones Negativ ? ? P_ob/Gy n: 81 e Reniac [facility] ? ? ? Specifi 1.010 ? ? P_ob/Chamfering Machine Operator : 81 [facility] ? ? ? Blood Negativ ? ? P_ob/Chamfering Machine Operator: 81 e [facility] ? ? ? Ph 6.0 ? ? P_ob/Chamfering Machine Operator: 81 [facility] ? ? ? Protein Trace ? ? P_ob/Chamfering Machine Operator : 81 [facility] ? ? ? Nitrite negativ ? ? P_ob/Gy n: 81 e [facility] ? ? ? Leukocy Negativ ? ? P_ob/Gy n: 81 te e Reniac [facility] 01/04/2020 Urinalysis, UR ? UA-colo yellow pale Final [place] Dipstick, Reflex r yellow [facility] L ab (Internal) : [address] t ? ? UR ? UA-appe clear clear Final [place] ar [facility] (Internal) : [address] t ? ? UR ? UA-gluc negativ negative Final North e [facility] (Internal) : [address] t ? ? UR ? UA-bili negativ negative Final North e [facility] (Internal) : [address] t ? ? UR ? UA-keto negativ negative Final [place] ne e [facility] (Internal) : [address] t ? ? UR ? UA-spec >1.030 1.003-1.0 Final [place] Grav 35 [facility] L [facility] (Internal) : [address] t ? ? UR ? UA-bloo negativ negative Final Cut[place] d [facility] L ab (Internal) : [address] t ? ? UR ? UA-pH 5.0 4.6-8.0 Final [place] [pH] [pH] [facility] (Internal) : [address] t ? ? UR ? UA-prot negativ negative Final [facility] L ab (Internal) : [address] t ? ? UR ? UA-urob normal normal Final [facility] L ab (Internal) : [address] t ? ? UR ? UA-nitr negativ negative Final [facility] L ab (Internal) : [address] t ? ? UR ? UA-leuk negativ negative Final [place] Est [facility] L ab (Internal) : [address] 01/02/2020 HbA1C BLD ? Ha1C 5.7 % 4.0-6.0 % Final [facility] th (Hemoglobin Count ry a1C), Blood Hospi shelbi Lab (Internal) : [address] 09/25/2019 CMP, Serum or S High g/r 205 74-106 Final [place] Plasma mg/dL mg/dL [facility] L ab (Internal) : [address] t ? ? S ? Bun 10 7-17 Final [place] mg/dL mg/dL [facility] (Internal) : [address] t ? ? S ? Crea 0.70 0.52-1.04 Final [place] mg/dL mg/dL [facility] (Internal) : [address] t ? ? S ? Ca 8.9 8.4-10.2 Final North mg/dL mg/dL [facility] (Internal) : [address] t ? ? S ? Na 138 137-145 Final [facility] mmol/L mmol/L [facility] (Internal) : [address] t ? ? S ? K 3.8 3.5-5.1 Final [facility] mmol/L mmol/L [facility] (Internal) : [address] t ? ? S ? Cl 100 98-107 Final [place] mmol/L mmol/L [facility] (Internal) : [address] t ? ? S ? Tco2 26.0 22.0-30.0 Final [facility] mmol/L mmol/L [facility] (Internal) : [address] t ? ? S ? Tp 6.7 6.3-8.2 Final [place] g/dL g/dL [facility] (Internal) : [address] t ? ? S ? Alb 3.8 3.5-5.0 Final [place] g/dL g/dL [facility] (Internal) : [address] t ? ? S ? Tbil 0.7 0.2-1.3 Final [place] mg/dL mg/dL [facility] (Internal) : [address] t ? ? S ? Alp 84 U/L 50-136 Final [facility] U/L [facility] (Internal) : [address] t ? ? S ? Alt 27 U/L 9-52 U/L Final [facility] (Sgpt) [facility] (Internal) : [address] t ? ? S ? Ast 28 U/L 14-36 U/L Final [facility] (Sgot) [facility] (Internal) : [address] t 09/25/2019 Lipid Panel, S ? Chol 146 50-200 Final North Serum mg/dL mg/dL [facility] (Internal) : [address] t ? ? S High Trig 156 10-150 Final [place] mg/dL mg/dL [facility] (Internal) : [address] t ? ? S Low Hdl 32 40-60 Final [facility] mg/dL mg/dL [facility] (Internal) : [address] t ? ? S ? Ldl 83 0-130 Final [facility] mg/dL mg/dL [facility] (Internal) : [address] [facility] 09/25/2019 CRP, High S High Rcrp 0.49 0.10-0.30 Final [place] Sensitivity, mg/dL mg/dL Coun try Serum or Plasma H ospital Lab (Internal) : [address] [facility] 09/25/2019 Rf (Rheumatoid BLD ? Rf negativ negative Fi nal North Factor), Serum e < 10 < 10 Co untry [IU]/mL [IU]/mL Hospital Lab (Internal) : [address] [facility] 09/25/2019 HbA1C BLD ? Ha1C 5.7 % 4.0-6.0 % Final Nor th (Hemoglobin Count ry a1C), Blood Hospi shelbi Lab (Internal) : [address] [facility] 09/25/2019 ESR (Erythrocyte BLD ? Esr 6 mm/h 0-30 mm/h Final [place] Sedimentation Cou ntry Rate), Blood Hosp ital Lab (Internal) : [address] [facility] 09/25/2019 Lamotrigine, S ? Lamotri 3.7 2.5 - Final [place] Serum gine, S mcg/mL 15.0 Country mcg/mL Hospital L ab (Internal) : [address] [facility] 09/25/2019 RUTHY (Antinuclear S ? RUTHY negativ negative Final [place] Antibodies) Interpre e Cou ntry Screen, Serum tation Hos pital Lab (Internal) : [address] [facility] 09/25/2019 Anca, Serum S ? Anca negativ negative Final [place] Interpre e Country [facility] Hospital L ab (Internal) : [address] [facility] 09/25/2019 Borrelia S ? Lyme negativ negative Final N orth [place] Ab, Antibody e Country [facility] Hospital L ab Immunoassay, (Int ernal): Serum [address] [facility] 09/25/2019 Cyclic S ? Cyclic <15.6 U <20.0 Final Nort h Citrullinated Citrulli (negative Country Peptide Ab, nated ) U Hospi shelbi Lab Quant Peptide (Internal ): Immunoassay, Ab, S [address] [facility] 06/27/2019 FSH S - Fsh 10.7 see note Final Nort h (Follicle-stimul mIU/mL mIU/mL Country ating Hormone), H ospital Lab Serum (Internal) : [address] 06/27/2019 Pap Test, MISC - Hpv see ? Final Nor th Thinprep, report [facility] Lab (Internal) : [address] ? ? MISC - Pap see ? Final North report [facility] L ab (Internal) : [address] ? ? MISC - Report (see ? Final North below) [facility] (Internal) : [address] 06/05/2019 HbA1C BLD - Ha1C 5.9 % 4.0-6.0 % Final Nor th (Hemoglobin Count ry a1C), Blood Hospi shelbi Lab (Internal) : [address] 06/05/2019 BMP, Serum or S High g/r 175 74-106 Final North Plasma mg/dL mg/dL [facility] (Internal) : [address] ? ? S - Bun 8 mg/dL 7-17 Final North mg/dL [facility] L ab (Internal) : [address] ? ? S - Crea 0.60 0.52-1.04 Final North mg/dL mg/dL [facility] (Internal) : [address] ? ? S - Ca 9.5 8.4-10.2 Final North mg/dL mg/dL [facility] (Internal) : [address] ? ? S - Na 139 137-145 Final North mmol/L mmol/L [facility] (Internal) : [address] ? ? S - K 4.0 3.5-5.1 Final North mmol/L mmol/L [facility] (Internal) : [address] ? ? S - Cl 101 98-107 Final North mmol/L mmol/L [facility] (Internal) : [address] ? ? S - Tco2 28.0 22.0-30.0 Final North mmol/L mmol/L [facility] (Internal) : [address] 06/05/2019 Lipid Panel, S High Chol 208 50-200 Final North Serum mg/dL mg/dL [facility] (Internal) : [address] tucker ? ? S High Trig 287 10-150 Final [place] mg/dL mg/dL [facility] (Internal) : [address] tucker ? ? S Low Hdl 31 40-60 Final [facility] mg/dL mg/dL [facility] (Internal) : [address] ? ? S - Ldl 120 0-130 Final [place] mg/dL mg/dL [facility] (Internal) : [address] 06/05/2019 T4, Free, Serum S - Ft4 1.06 0.78-2.19 F inal North NG/dL NG/dL [facility] (Internal) : [address] 06/05/2019 Microalbumin, UR High Malb 73.8 5.0-16.7 Nydia l [place] Urine mg/L mg/L [facility] (Internal) : [address] ? ? UR High U-crea, 276 30-125 Final [place] Spot mg/dL mg/dL [facility] (Internal) : [address] tucker ? ? UR - Microal 26.7 0.0-30.0 Final North b/crea ug/mg ug/mg [facility] (Internal) : [address] 06/05/2019 TSH, Serum or S - Tsh 0.50 0.47-4.68 Fin al North Plasma u[IU]/m u[IU]/mL Country L Hospital L ab (Internal) : [address] 02/07/2019 HbA1C BLD - Ha1C 6.0 % 4.0-6.0 % Final Nor th (Hemoglobin Count ry a1C), Blood Hospi shelbi Lab (Internal) : [address] 12/06/2018 Microalbumin, ? No ? ? ? [facility] Urine [facility] ion (Lab): 528 [address] [place] [facility] 12/06/2018 Lipid Panel, ? No ? ? ? [facility] Serum [facility] ion (Lab): 528 [place] [facility] 05/10/2018 HbA1C BLD - Ha1C 5.9 % 4.0-6.0 % Final [facility] th (Hemoglobin Count ry a1C), Blood Hospi shelbi Lab (Internal) : [address] 05/10/2018 Urinalysis, UR - UA-colo yellow pale Final [place] Dipstick, Reflex r yellow [facility] Hospital L ab (Internal) : [address] ? ? UR ABNORMAL UA-appe hazy clear Final [facility] Hospital L ab (Internal) : [address] t ? ? UR - UA-spec 1.020 1.003-1.0 Final [place] Grav 35 [facility] L ab (Internal) : [address] ? ? UR - UA-pH 6.0 4.6-8.0 Final [place] [pH] [pH] [facility] L ab (Internal) : [address] ? ? UR ABNORMAL UA-leuk trace negative Final [facility] h Est [facility] L ab (Internal) : [address] ? ? UR - UA-nitr negativ negative Final [facility] ab (Internal) : [address] ? ? UR - UA-prot negativ negative Final [facility] L ab (Internal) : [address] ? ? UR - UA-gluc negativ negative Final [facility] ab (Internal) : [address] ? ? UR - UA-keto negativ negative Final [facility] L ab (Internal) : [address] ? ? UR - UA-urob normal normal Final [facility] L ab (Internal) : [address] ? ? UR - UA-bili negativ negative Final [facility] L ab (Internal) : [address] ? ? UR ABNORMAL UA-bloo small negative Final Nort h d [facility] ab (Internal) : [address] 05/10/2018 Urinalysis, UR ABNORMAL UA-WBC 10-25 0-3 [hpf] Fi nal [place] Microscopic [hpf] Count Hospital L ab (Internal) : [address], [place] ? ? UR - UA-RBC 0-2 0-2 [hpf] Final North [hpf] [facility] L ab (Internal) : [address] t ? ? UR ABNORMAL UA-bact moderat none seen Final No rth eria e [hpf] [hpf] [facility] L ab (Internal) : [address] t ? ? UR ABNORMAL UA-epit moderat none seen Final No rth helial e [hpf] [hpf] [facility] L ab (Internal) : [address] t ? ? UR - UA-mucu none none seen Final North s seen [hpf] Country [hpf] Hospital L ab (Internal) : [address] t 05/10/2018 Culture ([place] UR - Final microbi ? Fin al North Count), Urine ology Cou ntry results Hospital Lab (Internal) : [address] t 05/10/2018 Urinalysis, Urine ? Color Yellow ? ? P _nc Primary Dipstick, Reflex Care Micro [place]: 1 86 [facility] ? ? Urine ? Appeara Clear ? ? P_nc Marleni sharmaine nce Care [place]: 1 86 [facility] ? ? Urine ? Glucose Normal ? ? P_nc Marleni sharmaine Care [place]: 1 86 [facility] ? ? Urine ? Bilirub Negativ ? ? P_nc Pr imary in e [facility] [place]: 1 86 [facility] ? ? Urine ? Ketones Trace ? ? P_nc Marleni sharmaine Care [place]: 1 86 [facility] ? ? Urine ? Specifi 1.015 ? ? P_nc Marleni sharmaine c Care [place]: 186 [facility] ? ? Urine ? Blood Moderat ? ? P_nc Prim amilcar e [facility] [place]: 1 86 [facility] ? ? Urine ? Ph 6.0 ? ? P_nc Prima ry [facility] [place]: 1 86 [facility] ? ? Urine ? Protein Trace ? ? P_nc Marleni sharmaine Care [place]: 1 86 [facility] ? ? Urine ? Urobili 0.2 ? ? P_nc Marleni sharmaine nogchristy Care [place]: 1 86 [facility] ? ? Urine ? Nitrite positiv ? ? P_nc Pr imary e Care [place]: 1 86 [facility] ? ? Urine ? Leukocy Small ? ? P_nc Marleni sharmaine te Care [facility]: 186 [facility] 04/03/2018 CBC W/ Auto Diff BLD - Wbc 6.8 5.0-10.0 F inal [place] 10*3/uL 10*3/uL [facility] L ab (Internal) : [address] ? ? BLD - Rbc 4.67 4.10-5.30 Final [place] 10*6/uL 10*6/uL [facility] L ab (Internal) : [address] ? ? BLD - Hgb 15.3 12.0-16.0 Final [place] g/dL g/dL [facility] L ab (Internal) : [address] t ? ? BLD - Hct 43.6 % 37.0-47.0 Final [facility] Hospital L ab (Internal) : [address] t ? ? BLD - Mcv 93.4 fL 80.0-96.0 Final [facility] Hospital L ab (Internal) : [address] ? ? BLD High Mch 32.8 pg 26.0-32.0 Final [facility] Hospital L ab (Internal) : [address] ? ? BLD High Mchc 35.1 31.0-35.0 Final [place] g/dL g/dL [facility] L ab (Internal) : [address] ? ? BLD - Rdw 11.6 % 11.5-14.5 Final [facility] Hospital L ab (Internal) : [address] ? ? BLD - Plt 257 130-450 Final [place] 10*3/uL 10*3/uL [facility] L ab (Internal) : [address] ? ? BLD - Anc 4.71 ? Final [place] 10*3/uL [facility] L ab (Internal) : [address] t ? ? BLD - Neutro 69.0 % 40.0-75.0 Final [facility] Hospital L ab (Internal) : [address] ? ? BLD - Lymph 20.7 % 20.0-50.0 Final [facility] % [facility] (Internal) : [address] ? ? BLD - [place] 6.9 % 2.0-10.0 Final North % [facility] L [facility] (Internal) : [address] ? ? BLD - Eos 2.2 % 1.0-6.0 % Final [facility] (Internal) : [address] t ? ? BLD - Baso 0.9 % 0.0-1.0 % Final [facility] (Internal) : [address] t ? ? BLD - Ig 0.3 % 0.0-0.9 % Final [facility] (Internal) : [address] 04/03/2018 CMP, Serum or S High g/r 140 74-106 Final North Plasma mg/dL mg/dL [facility] (Internal) : [address] ? ? S - Bun 13 7-17 Final North mg/dL mg/dL [facility] (Internal) : [address] ? ? S - Crea 0.60 0.52-1.04 Final North mg/dL mg/dL [facility] (Internal) : [address] ? ? S - Ca 10.2 8.4-10.2 Final North mg/dL mg/dL [facility] (Internal) : [address] ? ? S - Na 140 137-145 Final North mmol/L mmol/L [facility] (Internal) : [address] t ? ? S - K 4.2 3.5-5.1 Final North mmol/L mmol/L [facility] (Internal) : [address] ? ? S - Cl 101 98-107 Final [facility] mmol/L mmol/L [facility] (Internal) : [address] t ? ? S High Tco2 31.0 22.0-30.0 Final [facility] mmol/L mmol/L [facility] (Internal) : [address] ? ? S - Tp 8.0 6.3-8.2 Final North g/dL g/dL [facility] L ab (Internal) : [address] ? ? S - Alb 4.6 3.5-5.0 Final [place] g/dL g/dL [facility] L ab (Internal) : [address] ? ? S - Tbil 0.5 0.2-1.3 Final [place] mg/dL mg/dL [facility] L ab (Internal) : [address] ? ? S High Alp 144 U/L 50-136 Final [place] U/L [facility] L ab (Internal) : [address] ? ? S - Alt 24 U/L 9-52 U/L Final [place] (Sgpt) [facility] L ab (Internal) : [address] ? ? S - Ast 29 U/L 14-36 U/L Final [place] (Sgot) [facility] L ab (Internal) : [address] 04/03/2018 Troponin I, S - Trop <0.06 0.00-0.06 Final [place] Serum or Plasma NG/mL NG/mL [facility] L ab (Internal) : [address] 04/03/2018 D-dimer, Quant, PLASMA High Dimq 0.56 0.00-0.50 F inal [place] Plasma mg/L mg/L [facility] L ab (Internal) : [address] 02/22/2018 HbA1C BLD - Ha1C 5.6 % 4.0-6.0 % Final [facility] (Hemoglobin Count ry a1C), Blood Hospi shelbi Lab (Internal) : [address] 12/27/2017 CBC W/ Auto Diff BLD - Wbc 6.6 5.0-10.0 F inal [place] 10*3/uL 10*3/uL [facility] L ab (Internal) : [address] ? ? BLD Low Rbc 4.08 4.10-5.30 Final [place] 10*6/uL 10*6/uL [facility] L ab (Internal) : [address] ? ? BLD - Hgb 13.7 12.0-16.0 Final [place] g/dL g/dL [facility] L ab (Internal) : [address] ? ? BLD - Hct 39.4 % 37.0-47.0 Final [facility] Hospital L ab (Internal) : [address] ? ? BLD High Mcv 96.6 fL 80.0-96.0 Final [place] fL [facility] L ab (Internal) : [address] ? ? BLD High Mch 33.6 pg 26.0-32.0 Final Cut[place] pg [facility] L ab (Internal) : [address] ? ? BLD - Mchc 34.8 31.0-35.0 Final [place] g/dL g/dL [facility] L ab (Internal) : [address] ? ? BLD - Rdw 11.8 % 11.5-14.5 Final [facility] Hospital L ab (Internal) : [address] ? ? BLD - Plt 223 130-450 Final [place] 10*3/uL 10*3/uL [facility] Hospital L ab (Internal) : [address] ? ? BLD - Anc 4.58 ? Final [place] 10*3/uL [facility] L ab (Internal) : [address] ? ? BLD - Neutro 69.2 % 40.0-75.0 Final [facility] L ab (Internal) : [address] ? ? BLD - Lymph 20.1 % 20.0-50.0 Final [facility] L ab (Internal) : [address] ? ? BLD - [place] 6.3 % 2.0-10.0 Final [facility] L ab (Internal) : [address] ? ? BLD - Eos 3.0 % 1.0-6.0 % Final [facility] L ab (Internal) : [address] ? ? BLD - Baso 0.9 % 0.0-1.0 % Final [facility] L ab (Internal) : [address] ? ? BLD - Ig 0.5 % 0.0-0.9 % Final [facility] L ab (Internal) : [address] 12/27/2017 Electrocardiogra ? Rate & normal ? ? P_nc Primary m Rhythm sinus Care rhythm [place]: [address] [place] [address] 11/21/2017 Drug Screen, UR - Thc negativ neg (50 Final [facility] Urine e NG/mL NG/mL) [facility] NG/mL Hospital L ab (Internal) : [address] ? ? UR - Pcp negativ neg (25 Final [facility] e NG/mL) [facility] ([facility]) : [address] ? ? UR - [place] negativ neg (150 Final [facility] e NG/mL) [facility] (Internal) : [address] ? ? UR - Met negativ neg (500 Final [facility] e NG/mL) [facility] (Internal) : [address] ? ? UR - Opi negativ neg (100 Final [facility] e NG/mL) [facility] (Internal) : [address] ? ? UR - Amp negativ neg (500 Final [facility] e NG/mL) [facility] (Internal) : [address] ? ? UR - Bzo negativ neg (150 Final [facility] e NG/mL) [facility] (Internal) : [address] ? ? UR - Tca negativ neg (300 Final [facility] e NG/mL) [facility] (Internal) : [address] ? ? UR - Mtd negativ neg (200 Final [facility] e NG/mL) [facility] ([facility]) : [address] ? ? UR - Bar negativ neg (200 Final [facility] e NG/mL) [facility] (Internal) : [address] ? ? UR - Oxy negativ neg (100 Final [facility] e NG/mL) [facility] ([facility]) : [address] ? ? UR - Ppx negativ neg (300 Final [facility] e NG/mL) [facility] ([facility]) : [address] ? ? UR - Bup negativ neg (10 Final [facility] e NG/mL) [facility] ([facility]) : [address] 09/19/2017 Venipuncture BLD ? Venpn* ? ? Final [facility] L ab (Internal) : [address] 09/19/2017 HbA1C BLD ? Ha1C 5.6 % 4.0-6.0 % Final [facility] (Hemoglobin Count ry a1C), Blood [facility]pi [facility] Lab (Internal) : [address] 06/14/2017 Urinalysis, UR ? UA-colo yellow pale Final [facility] Complete r yellow [facility] L ab (Internal) : [address] ? ? UR ABNORMAL UA-appe hazy clear Final [facility] L ab (Internal) : [address] ? ? UR ? UA-spec >=1.030 1.003-1.0 Final Nort h Grav 35 [facility] L ab (Internal) : [address] ? ? UR ? UA-pH 6.0 4.6-8.0 Final [place] [pH] [pH] [facility] L ab (Internal) : [address] ? ? UR ? UA-leuk negativ negative Final [facility] L [facility] (Internal) : [address] ? ? UR ? UA-nitr negativ negative Final [facility] L ab (Internal) : [address] ? ? UR ? UA-prot negativ negative Final [facility] L ab (Internal) : [address] ? ? UR ? UA-gluc negativ negative Final [facility] L ab (Internal) : [address] ? ? UR ABNORMAL UA-keto trace negative Final Nort [facility] L ab (Internal) : [address] ? ? UR ? UA-urob normal normal Final [facility] L ab (Internal) : [address] ? ? UR ? UA-bili negativ negative Final [facility] L ab (Internal) : [address] ? ? UR ? UA-bloo negativ negative Final [facility] L ab (Internal) : [address] ? ? UR ? UA-WBC 0-3 0-3 [hpf] Final North [hpf] [facility] (Internal) : [address] ? ? UR ? UA-RBC 0-2 0-2 [hpf] Final [facility] [hpf] [facility] (Internal) : [address] ? ? UR ABNORMAL UA-bact few none seen Final Nor th eria [hpf] [hpf] [facility] (Internal) : [address] ? ? UR ABNORMAL UA-epit few none seen Final Nor th helial [hpf] [hpf] [facility] (Internal) : [address] ? ? UR ? UA-mucu none none seen Final North s seen [hpf] [facility] [hpf] [facility] (Internal) : [address] 05/23/2017 Culture, Urine UR ? Final microbi ? Nydia l [facility] Lab (Internal) : [address] 05/23/2017 Urinalysis, UR ABNORMAL UA-WBC 3-5 0-3 [hpf] Fi nal North Microscopic [hpf] Count [facility] (Internal) : [address] ? ? UR ABNORMAL UA-RBC 25-50 0-2 [hpf] Final Nort h [hpf] [facility] (Internal) : [address] ? ? UR ABNORMAL UA-bact many none seen Final Nor th eria [hpf] [hpf] [facility] (Internal) : [address] ? ? UR ABNORMAL UA-epit many none seen Final Nor th helial [hpf] [hpf] [facility] (Internal) : [address] ? ? UR ABNORMAL UA-mucu moderat none seen Final No rth s e [hpf] [hpf] [facility] (Internal) : [address] ? ? UR ? Ca Ox few ? Final [place] [hpf] [facility] (Internal) : [address] 05/23/2017 Urinalysis, UR ? UA-colo dark pale Final [facility] Dipstick, Reflex r yellow yellow [facility] L [facility] (Internal) : [address] ? ? UR ABNORMAL UA-appe cloudy clear Final [facility] L ab (Internal) : [address] ? ? UR ? UA-gluc negativ negative Final [facility] L ab (Internal) : [address] ? ? UR ABNORMAL UA-bili positiv negative Final [facility] L ab (Internal) : [address] ? ? UR ? UA-keto negativ negative Final [facility] L ab (Internal) : [address] ? ? UR ? UA-spec >1.030 1.003-1.0 Final [facility] [address] [place] [address] L ab (Internal) : [address] ? ? UR ABNORMAL UA-bloo large negative Final [facility] L ab (Internal) : [address] ? ? UR ? UA-pH 5.0 4.6-8.0 Final [place] [pH] [pH] [facility] L ab (Internal) : [address] ? ? UR ABNORMAL UA-prot 1+ negative Final [facility] L ab (Internal) : [address] ? ? UR ? UA-urob normal normal Final [facility] L ab (Internal) : [address] ? ? UR ? UA-nitr negativ negative Final [facility] (Internal) : [address] ? ? UR ? UA-leuk negativ negative Final [facility] L ab (Internal) : [address] 05/18/2017 Venipuncture BLD ? Venpn* ? ? Final [facility] L ab (Internal) : [address] 05/18/2017 HbA1C BLD ? Ha1C 6.0 % 4.0-6.0 % Final [facility] (Hemoglobin Count ry a1C), Blood Hospi [facility] Lab (Internal) : [address] 05/18/2017 CMP, Serum or S High g/r 198 74-106 Final [place] Plasma mg/dL mg/dL [facility] L ab (Internal) : [address] ? ? S ? Bun 16 7-17 Final [facility] mg/dL mg/dL [facility] (Internal) : [address] ? ? S ? Crea 0.70 0.52-1.04 Final [facility] mg/dL mg/dL [facility] (Internal) : [address] ? ? S ? Ca 9.1 8.4-10.2 Final [facility] mg/dL mg/dL [facility] (Internal) : [address] ? ? S ? Na 138 137-145 Final [facility] mmol/L mmol/L [facility] (Internal) : [address] ? ? S ? K 4.0 3.5-5.1 Final [facility] mmol/L mmol/L [facility] (Internal) : [address] ? ? S ? Cl 103 98-107 Final [facility] mmol/L mmol/L [facility] (Internal) : [address] ? ? S ? Tco2 24.0 22.0-30.0 Final [facility] mmol/L mmol/L [facility] (Internal) : [address] ? ? S ? Tp 6.8 6.3-8.2 Final [facility] g/dL g/dL [facility] (Internal) : [address] ? ? S ? Alb 3.7 3.5-5.0 Final [facility] g/dL g/dL [facility] (Internal) : [address] ? ? S ? Tbil 0.7 0.2-1.3 Final [facility] mg/dL mg/dL [facility] (Internal) : [address] ? ? S ? Alp 99 U/L 50-136 Final [facility] U/L [facility] (Internal) : [address] ? ? S ? Alt 38 U/L 9-52 U/L Final [facility] (Sgpt) [facility] (Internal) : [address] ? ? S ? Ast 23 U/L 14-36 U/L Final [facility] (Sgot) [facility] (Internal) : [address] 04/20/2017 Culture, Urine UR ? Final microbi ? Nydia l [facility] Lab (Internal) : [address] 04/20/2017 sensitivities[I] MISC ? Sens* ? ? Fin al [facility] L ab (Internal) : [address] 04/20/2017 Urinalysis, UR ? UA-colo straw pale Final [place] Complete r yellow [facility] L ab (Internal) : [address] ? ? UR ? UA-appe clear clear Final [facility] L ab (Internal) : [address] ? ? UR ? UA-spec <=1.005 1.003-1.0 Final Nort h Grav 35 [facility] L ab (Internal) : [address] ? ? UR ? UA-pH 6.0 4.6-8.0 Final [place] [pH] [pH] [facility] L ab (Internal) : [address] ? ? UR ABNORMAL UA-leuk large negative Final Nort h Est [facility] L ab (Internal) : [address] ? ? UR ? UA-nitr negativ negative Final [facility] ab (Internal) : [address] ? ? UR ? UA-prot negativ negative Final [facility] ab (Internal) : [address] ? ? UR ? UA-gluc negativ negative Final [facility] ab (Internal) : [address] ? ? UR ? UA-keto negativ negative Final [facility] ab (Internal) : [address] ? ? UR ? UA-urob normal normal Final [facility] ab (Internal) : [address] ? ? UR ? UA-bili negativ negative Final [facility] ab (Internal) : [address] ? ? UR ABNORMAL UA-bloo large negative Final Nort h d [facility] ab (Internal) : [address] ? ? UR ABNORMAL UA-WBC 10-25 0-3 [hpf] Final Nort h [hpf] [facility] ab (Internal) : [address] ? ? UR ABNORMAL UA-RBC 3-5 0-2 [hpf] Final Nort h [hpf] [facility] ab (Internal) : [address] ? ? UR ABNORMAL UA-bact few none seen Final Nor th eria [hpf] [hpf] [facility] ab (Internal) : [address] ? ? UR ABNORMAL UA-epit moderat none seen Final No rth helial e [hpf] [hpf] [facility] ab (Internal) : [address] ? ? UR ABNORMAL UA-mucu rare none seen Final Nor th s [hpf] [hpf] [facility] (Internal) : [address] Past Encounters 07/31/2021 Pain of Right Shoulder Joint Kaia Mcnulty PROCESS SAFETY ENGINEERING TECHNOLOGIST: [address] [place] [phone], Ph. 06/24/2021 Chest Pain; Abdominal Pain Selwyn Scales MD: [address] [place] [phone], Ph. 03/03/2021 Adult Health Examination; Dysuria; Type 2 Diabetes Mellitus without Complication; Hyperlipidemia Jing Dixon PROCESS SAFETY ENGINEERING TECHNOLOGIST: [address] [place] [phone], Ph. 10/03/2020 Type 2 Diabetes Mellitus without Complic ation; Screening Mammography; Pain in Right Knee Jing Dixon PROCESS SAFETY ENGINEERING TECHNOLOGIST: [address] [place] [phone], Ph. Social History Tobacco Smoking Status Never Smoker Vaccine List Vaccine Type COVID-19, mRNA, LNP-S, PF, 30 mcg/0.3 mL dose ([employer]) 06/06/2020 06/27/2020 Hep B, adult 08/22/2011 influenza, injectable, quadrivalent 05/14/2015?0.5 mL 07/23/2016 04/20/2018?0.5 mL 02/27/2019 influenza, injectable, quadrivalent, pre servative free 05/23/2017?0.5 mL influenza, live, intranasal 03/28/2009 influenza, seasonal, injectable 04/26/2011 03/22/2012?0.5 mL 03/20/2013 novel [id number], all formulation s 03/28/2009 Tdap 08/22/2011 Plan of Care Reminders Provider Appointments None recorded. ? ? Lab None recorded. ? ? Referral None recorded. ? ? Procedures None recorded. ? ? Surgeries None recorded. ? ? Imaging None recorded. ? ? Vitals 07/31/2021 12:40PM Office [facility] 40 Height Weight BMI Blood Pressure 155.58 cm 111.84 kg 46.2 kg/m2 144/90 mm[Hg] 06/24/2021 03:20PM Acute 40 Height Weight BMI Blood Pressure 155.57 cm 112.15 kg 46.3 kg/m2 130/94 mm[Hg] 03/03/2021 12:40PM CPE 40 Height Weight BMI Blood Pressure 155.57 cm 112.72 kg 46.6 kg/m2 110/88 mm[Hg] 10/03/2020 08:20AM Follow Up 40 Height Weight BMI Blood Pressure 155.57 cm 109.86 kg 45.4 kg/m2 118/82 mm[Hg] 04/11/2020 08:20AM Follow Up 20 Height Weight BMI Blood Pressure 155.57 cm 110.68 kg 45.7 kg/m2 120/80 mm[Hg] 04/02/2020 02:30PM Office 20 Height Weight BMI Blood Pressure 155.57 cm 109.32 kg 45.2 kg/m2 110/62 mm[Hg] 01/04/2020 09:00AM CPE 40 Height Weight BMI Blood Pressure 155.57 cm 110.68 kg 45.7 kg/m2 112/68 mm[Hg] 09/14/2019 10:00AM Follow Up 20 Height 155.57 cm 08/28/2019 04:20PM Acute 40 Height Weight BMI Blood Pressure 155.57 cm 110.36 kg 45.6 kg/m2 116/72 mm[Hg] 08/24/2019 02:40PM IUD 20 Height Blood Pressure 155.57 cm 130/70 mm[Hg] 07/13/2019 10:30AM Procedure 30 Height Weight BMI Blood Pressure 155.57 cm 110.22 kg 45.5 kg/m2 128/70 mm[Hg] 06/27/2019 08:20AM Follow Up 20 Height Weight BMI Blood Pressure 155.57 cm 109.86 kg 45.4 kg/m2 128/72 mm[Hg] 06/27/2019 10:00AM HME 30 Height Weight BMI Blood Pressure 155.57 cm 110.22 kg 45.5 kg/m2 130/70 mm[Hg] 03/14/2019 02:40PM Follow Up 20 Height Weight BMI Blood Pressure 155.57 cm 110 kg 45.4 kg/m2 132/74 mm[Hg] 02/07/2019 04:40PM Follow Up 20 Height Weight BMI Blood Pressure 155.57 cm 108.64 kg 44.9 kg/m2 112/70 mm[Hg] 12/11/2018 05:00PM Follow Up 20 Height Weight BMI Blood Pressure 155.57 cm 109.41 kg 45.2 kg/m2 110/80 mm[Hg] 05/10/2018 04:40PM Acute 20 Height Weight BMI Blood Pressure 155.57 cm 107.82 kg 44.5 kg/m2 112/80 mm[Hg] 04/05/2018 10:00AM Follow Up 20 Height Weight BMI Blood Pressure 155.57 cm 109 kg 45 kg/m2 110/80 mm[Hg] 02/27/2018 09:40AM Follow Up 40 Height Weight BMI Blood Pressure 155.57 cm 110.45 kg 45.6 kg/m2 110/80 mm[Hg] 12/27/2017 11:20AM Preop Clearance 40 Height Weight BMI Blood Pressure 155.57 cm 112.31 kg 46.4 kg/m2 104/78 mm[Hg] 12/19/2017 08:00AM Follow Up 20 Height Weight BMI Blood Pressure 155.57 cm 114.21 kg 47.2 kg/m2 118/70 mm[Hg] 11/21/2017 08:40AM Acute 20 Height Blood Pressure 155.57 cm 112/78 mm[Hg] 09/19/2017 Weight Blood Pressure 110.72 kg 120/82 mm[Hg] 08/12/2017 Weight Blood Pressure 111.27 kg 130/78 mm[Hg] 06/01/2017 Height Weight Blood Pressure 155.57 cm 111.9 kg 134/82 mm[Hg] 05/23/2017 Weight Blood Pressure 111.54 kg 138/88 mm[Hg] 04/08/2017 Weight Blood Pressure 112.31 kg 118/78 mm[Hg] 03/21/2017 Weight Blood Pressure 112.85 kg 118/72 mm[Hg] 02/14/2017 Weight Blood Pressure 117.34 kg 122/78 mm[Hg] 07/23/2016 Weight Blood Pressure 116.3 kg 110/78 mm[Hg] 06/04/2016 Weight Blood Pressure 116.66 kg 118/82 mm[Hg] 06/01/2016 Weight Blood Pressure 115.21 kg 136/90 mm[Hg] 01/20/2016 Weight Blood Pressure 114.76 kg 120/78 mm[Hg] 07/14/2015 Height Weight Blood Pressure 155.57 cm 115.62 kg 116/64 mm[Hg] 06/06/2015 Weight 117.39 kg 05/14/2015 Weight Blood Pressure 118.39 kg 126/78 mm[Hg] 08/20/2014 Height Weight Blood Pressure 155.57 cm 117.48 kg 120/70 mm[Hg] 07/19/2014 Weight Blood Pressure 117.53 kg 108/68 mm[Hg] 07/12/2014 Height Weight Blood Pressure 155.57 cm 113.85 kg 124/86 mm[Hg] 02/21/2014 Height Weight Blood Pressure 155.57 cm 113.85 kg 124/86 mm[Hg] 08/09/2013 Weight 114.21 kg 08/02/2013 Weight 114.21 kg 07/31/2013 Weight Blood Pressure 114.21 kg 126/76 mm[Hg] 07/11/2013 Weight Blood Pressure 116.71 kg 112/74 mm[Hg] 05/23/2013 Height Weight Blood Pressure 155.57 cm 117.16 kg 120/74 mm[Hg] 05/09/2013 Height Weight Blood Pressure 155.57 cm 117.16 kg 118/74 mm[Hg] 04/11/2013 Height Weight Blood Pressure 155.57 cm 117.16 kg 116/74 mm[Hg] 03/28/2013 Height Weight Blood Pressure 155.57 cm 117.16 kg 118/70 mm[Hg] 03/27/2013 Height Weight Blood Pressure 155.57 cm 117.16 kg 116/80 mm[Hg] 10/31/2012 Weight Blood Pressure 115.76 kg 122/70 mm[Hg] 10/02/2012 Weight Blood Pressure 118.93 kg 110/74 mm[Hg] 09/08/2012 Blood Pressure 116/72 mm[Hg] 05/22/2012 Blood Pressure 120/76 mm[Hg] 01/04/2012 Height Weight Blood Pressure 157.48 cm 109.77 kg 120/84 mm[Hg] 11/30/2011 Weight Blood Pressure 111.22 kg 96/54 mm[Hg] 11/17/2011 Weight Blood Pressure 112.26 kg 110/70 mm[Hg] 10/18/2011 Weight Blood Pressure 109.54 kg 110/60 mm[Hg] 09/16/2011 Height Weight Blood Pressure 157.48 cm 109.27 kg 112/64 mm[Hg] 09/01/2011 Blood Pressure 142/78 mm[Hg] 08/17/2011 Height Weight Blood Pressure 157.48 cm 107.5 kg 101/69 mm[Hg] 03/03/2011 Height Weight Blood Pressure 157.48 cm 102.56 kg 120/72 mm[Hg] 02/01/2011 Height Weight Blood Pressure 157.48 cm 102.19 kg 96/68 mm[Hg] 11/11/2010 Height Weight Blood Pressure 157.48 cm 103.92 kg 98/64 mm[Hg] 08/20/2010 Height Weight Blood Pressure 157.48 cm 108.14 kg 130/84 mm[Hg] 01/19/2010 Weight Blood Pressure 112.58 kg 126/76 mm[Hg] 01/13/2009 Weight Blood Pressure 113.4 kg 112/80 mm[Hg] 12/20/2007 Weight Blood Pressure 114.31 kg 128/80 mm[Hg] 03/10/2007 Weight Blood Pressure 112.49 kg 122/82 mm[Hg] 09/16/2006 Weight Blood Pressure 112.94 kg 104/78 mm[Hg] 05/03/2006 Height Weight Blood Pressure 157.48 cm 110.9 kg 126/80 mm[Hg] 09/21/2005 Height Weight Blood Pressure 157.48 cm 106.59 kg 118/74 mm[Hg] 06/29/2005 Weight Blood Pressure 103.87 kg 138/80 mm[Hg] 11/09/2004 Blood Pressure 120/68 mm[Hg]
--- OUTSIDE RECORDS SUMMARY | 2021-11-20 14:14 | XMS_ITS | CCD ---
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 Allergies Allergy Code Allergy Type Reaction Status MORPHINE 7052 Drug allergy muscle tightness Active Procedures Unknown or Not Available. History of Immunizations Unknown or Not Available. Problems Unknown or Not Available. Results HEMOGLOBIN A1C - Collect Date/Time: 02/2021 10:43 Test Name Code Test Result Test Units Test Ref Range Hgb A1c 4548-4 6.7 % L=3.8 H=5.7 MEAN BLOOD GLUCOSE 13088-3 137 mg/dL Active Medications Medication Code Dose Units Frequency Route Modification Start Date/Time Citalopram 793263 40 MILLIGRAMS DAILY ORAL 01/01/2019 Hydrobromide 19:49 40MG Oral Tablet Prescription Detail TAKE 40 MILLIGRAMS ORAL AURY Y Glimepiride 1MG Oral Tablet [id number] 1 MILLIGRAMS DAILY ORAL 01/01/2019 19:49 Prescription Detail TAKE 1 MILLIGRAMS ORAL DAILY KlonoPIN 0.5MG 984128 0.5 MILLIGRAMS NEEDED THREE ORAL 01/01/2019 19:49 Oral Tablet TIMES A DAY Prescription Detail TAKE 0.5 MILLIGRAMS ORAL NEEDED THREE TIMES A DAY LORazepam 0.5MG 391928 0.5 MILLIGRAMS NEEDED, ORAL 19:49 Oral Tablet EVERY 12 HOURS Prescription Detail TAKE 0.5 MILLIGRAMS ORAL NEEDED, EVERY 12 HOURS MIRENA IUD 0 1 NEEDED INTRAUTERINE 2018 19:49 Prescription Detail 1 INTRAUTERINE NEEDED Naproxen 500MG Oral [id number] 500 MILLIGRAMS TWICE A DAY ORAL 01/01/2019 19:49 Tablet Prescription Detail TAKE 500 MILLIGRAMS ORAL TWI CE A DAY ONDANSETRON HCI 4MG 0 4 MILLIGRAMS NEEDED, EVERY ORAL 01/01/2019 19:49 ORAL TABLET 12 HOURS Prescription Detail TAKE 4 MILLIGRAMS ORAL NE EDED, EVERY 12 HOURS Propranolol HCl 40MG Oral [id number] 40 MILLIGRAMS DAILY ORAL 01/01/2019 19:49 Tablet Prescription Detail TAKE 40 MILLIGRAMS ORAL AURY Y Medications Administered During Visit Unknown or Not Available. Encounters Encounter Diagnosis Diagnosis Code Start Date Type 2 diabetes mellitus without complication [id number] 02/26/2021 Social History Smoking Status Code Start Date End Date Never smoker [id number] Patient Decision Aids Unknown or Not Available. Discharge Instructions You were admitted to [facility] on 02/26/2021 10:30 with a principal diagnosis of Type 2 diabetes mellitus wi thout complications You had the following tests done: HEMOG LOBIN A1C You were discharged from [facility] on 02/26/2021 10:30 Should you have any questions prior to d ischarge, please contact a member of your healthcare team. If you have left the ho spital and have any questions, please contact your primary care physician. Chief Complaint and Reason For Visit Unknown or Not Available. Function Status Unknown or Not Available. Plan of Care Unknown or Not Available. Referral/Transition of Care Unknown or Not Available.
== END 2021-11-20 14:12 | disposition home or self-care (01) ==
LOC: ER 14:12
PROVIDERS: Emergency Provider Emergency Medicine; PCP Registered Nurse
DX: R07.9 Chest pain, unspecified (principal); R07.89 Other chest pain
CPT/HCPCS: 36415; 80053; 93005; 99284; 71046; 84484; 85025; 93010; 99283